=== PATIENT | male | born 1965 | race Caucasian/White ===

== ENCOUNTER 2017-11-05 18:27 | Emergency (ER) | payer BC ==
[2017-11-05] MEDS ORDERED: methylPREDNISolone SOD SUCC 125 MG/2 ML VIAL IVP ONE (18:49)
--- NOTE | 2017-11-05 19:01 | ED Physician Documentation ---
General Adult - HPI Stated Complaint: bee sting Chief Complaint: Allergic Reaction Additional Information: Patient is a housekeeper/custodian/laundry worker. When he started to developed his hives he purposely had himself sung 4 times to try to build up immuntiy. Las week he got stund and developed some itching, blood shot eyes and some reddnes around the sting site. Tonight he was going to see how his hives were doing aand got stung again. Patient states that within minutes he started to have some generalized itching, hives, blood shot eyes, and red skin everywhere. Patient denies that he has had no shortness of breath, no swelling to his tongue or mouth noted. 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 denies: fever, chills - PAST HX Past History: none Other History: none Surgeries/Procedures: none Immunizations: referred to PCP - SOCIAL HX Smoking History: non-smoker Alcohol Use: none Drug Use: none - FAMILY HX Family History: No - VITAL SIGNS Vital Signs: Vital Signs Temp Pulse Resp BP Pulse Ox 97.8 F 75 16 94/53 96 11/05/17 18:33 11/05/17 18:33 11/05/17 18:33 11/05/17 18:33 11/05/17 18:33 - REVIEWED ASSESSMENTS Nursing Assessment Reviewed: Yes Vitals Reviewed: Yes <Robbie Haider - Last Filed: 11/05/17 18:55> - VITAL SIGNS Vital Signs: Vital Signs Temp Pulse Resp BP Pulse Ox 97.8 F 75 16 94/53 96 11/05/17 18:33 11/05/17 18:33 11/05/17 18:33 11/05/17 18:33 11/05/17 18:33 <Montserrat Beauchamp - Last Filed: 11/06/17 00:26> - PAST HX Allergies/Adverse Reactions: Allergies Allergy/AdvReac Type Severity Reaction Status Date / Time No Known Allergies Allergy Unverified 11/05/17 18:40 Home Medications: Ambulatory Orders Medication Instructions Recorded NK [NK] 11/05/17 Progress - Progress Progress: 1900: increasing shaking. He feels he has more redness. No shortness of air. DG 1929: feels he is not getting better - continues to deny any shortness of breath or mouth swelling DG 1999: He states he is feeling better. No shaking. Redness is improving DG 2029: Discussed waiting one full hour for any change. He is feeling "good" DG 2114: Discussed if symptoms return to come back to ER. He has zantac at home will take 150 mg BID X 5 days. Has benadryl at home - will take as directed x 2 days. Will start Medrol Dose pack tomorrow. Call Relocation Coordinator for EPi Pen . DG <Montserrat Beauchamp - Last Filed: 11/06/17 00:26> ED Results Lab/Radiology - Orders Orders: ED Orders Category Date Time Status Place IV Lock 1T Care 11/05/17 18:48 Active methylPREDNISolone SOD SUCC [Solu-MEDROL] Med 11/05/17 18:49 Discontinued 125 mg IVP NOW ONE <Robbie Haider - Last Filed: 11/05/17 18:55> - Lab Results Lab Results: Lab Results 11/05/17 11/05/17 19:15 19:15 WBC 7.20 K/ul K/ul (4.00-12.00) RBC 5.82 M/ul H M/ul (3.90-5.20) Hgb 17.8 g/dL g/dL (12.0-18.0) Hct 51.9 % % (37.0-53.0) MCV 89.1 fl fl (80.0-100.0) MCH 30.5 pg pg (28.0-34.0) MCHC 34.2 g/dL g/dL (30.0-36.0) RDW 13.7 % % (11.3-14.3) Plt Count 222 K/mm3 K/mm3 (130-400) Neut % (Auto) 47.5 % % (39.0-79.0) Lymph % (Auto) 42.4 % % (16.0-50.0) [place] % (Auto) 5.4 % % (0.0-11.0) Eos % (Auto) 1.1 % % (0.0-6.8) Baso % (Auto) 0.3 (0.0-1.5) Neut # (Auto) 3.4 # k/uL # k/uL (1.4-7.7) Lymph # (Auto) 3.1 # k/uL # k/uL (0.6-4.0) [place] # (Auto) 0.4 # k/uL # k/uL (0.0-0.9) Eos # (Auto) 0.1 # k/uL # k/uL (0.0-0.6) Baso # (Auto) 0.0 # k/uL # k/uL (0.0-0.5) Reactive Lymphs % 3.4 % % (0.0-5.0) Reactive Lymphs # 0.2 # k/uL # k/uL (0.0-0.8) Sodium 142 mmol/L mmol/L (136-145) Potassium 3.4 mmol/L L mmol/L (3.5-5.1) Chloride 108 mmol/L H mmol/L (98-107) Carbon Dioxide 21 mmol/L L mmol/L (22-30) BUN 17 mg/dL mg/dL (9-20) Creatinine 1.00 mg/dL mg/dL (0.66-1.25) Estimated Creat Clear 116 Est GFR ( Amer) > 60 (60 - ) Est GFR (Non-Af Amer) > 60 (60 - ) Glucose 144 mg/dL H mg/dL (74-106) Calcium 8.9 mg/dL mg/dL (8.4-10.2) Total Bilirubin 0.3 mg/dL mg/dL (0.2-1.3) AST 22 U/L U/L (15-46) ALT 34 U/L U/L (13-69) Alkaline Phosphatase 77 U/L U/L (38-126) Total Protein 7.6 g/dL g/dL (6.3-8.2) Albumin 4.6 g/dL g/dL (3.5-5.0) - Orders Orders: ED Orders Category Date Time Status Place IV Lock 1T Care 11/05/17 18:48 Active CBC/PLATELET/DIFF Routine Lab 11/05/17 19:15 Completed CMP Routine Lab 11/05/17 19:15 Completed 0.9 % Sodium Chloride [Normal Saline] 1,000 ml Med 11/05/17 19:08 Discontinued IV Q1H 0.9 % Sodium Chloride [Normal Saline] 1,000 ml Med 11/05/17 20:24 Active IV Q1H Famotidine/Pf [Pepcid] Med 11/05/17 19:32 Discontinued 20 mg IVP NOW ONE diphenhydrAMINE HCL [Benadryl] Med 11/05/17 19:17 Discontinued 50 mg IVP NOW ONE methylPREDNISolone SOD SUCC [Solu-MEDROL] Med 11/05/17 18:49 Discontinued 125 mg IVP NOW ONE <Montserrat Beauchamp - Last Filed: 11/06/17 00:26> General Adult Physical Exam - PHYSICAL EXAM GENERAL APPEARANCE: mild distress EENT: ENT inspection normal NECK: normal inspection, thyroid normal, supple. No: lymphadenopathy RESPIRATORY: no resp distress, chest non-tender, breath sounds normal. No: wheezes, rales, rhonchi CVS: reg rate & rhythm, heart sounds normal, equal pulses, no murmur ABDOMEN: soft, no organomegaly, normal bowel sounds, no abdominal bruit BACK: normal inspection SKIN: warm/dry, other (hives red) EXTREMITIES: non-tender NEURO: oriented X3, CN's nml as tested, motor nml, sensation nml, mood/affect nml, cognition normal <Robbie Haider - Last Filed: 11/05/17 18:55> Discharge <Robbie Haider - Last Filed: 11/05/17 18:55> Decision to Admit: NO Date of Decison to Admit: 11/05/17 Decision Time: 21:22 <Montserrat Beauchamp - Last Filed: 11/06/17 00:26> Clincal Impression: Allergic reaction Qualifiers: Encounter type: initial encounter Qualified Code(s): T78.40XA - Allergy, unspecified, initial encounter Referrals: Primary Doctor,No [Primary Care Provider] - 2 Days Additional Instructions: 1. Zantac at home take 150 mg BID X 5 days 2. Medrol Dose pack as directed start in am 3. Clairtin 10 mg daily x 10 days 4. Epi Pen if anaphylaxis (discuss with Cardiology in am) 5. Rest 6. Increase fluids 7. Follow up with PCP in 2 days 8. Return to ER as needed for any concerns or return of symptoms Condition: Stable Disposition: 01 HOME, SELF-CARE
[2017-11-05] MEDS ORDERED: 0.9 % SODIUM CHLORIDE 1,000 ML IV ONE ×2 (19:08→20:24)
[2017-11-05] MEDS ORDERED: diphenhydrAMINE HCL 50 MG/ML VIAL IVP ONE (19:17)
[2017-11-05 19:20] LABS: eGFR (African) > 60; eGFR (Non-African) > 60
[2017-11-05 19:22] LABS: BASOPHILS % 0.3 (0.0-1.5); EOSINOPHILS % 1.1 % (0.0-6.8); MEAN CORPUSCULAR HEMOGLOBIN 30.5 pg (28.0-34.0); MEAN CORPUSCULAR VOLUME 89.1 fl (80.0-100.0); MONOCYTES % 5.4 % (0.0-11.0); NEUTROPHILS # 3.4 # k/uL (1.4-7.7)
[2017-11-05] MEDS ORDERED: FAMOTIDINE/PF 20 MG/2 ML VIAL IVP ONE (19:32)
[2017-11-05 23:53] VITALS: BP 103/68
== END 2017-11-05 21:50 | disposition home or self-care (01) ==
LOC: ED 18:27
DX: T78.40XA Allergy, unspecified, initial encounter (principal)
CPT/HCPCS: 80053; 85025; J1200; J2930; J7030; 96360; 96361; 96374; 96375; S0028; S1016

== ENCOUNTER 2018-01-04 23:45 | Emergency (ER) | payer BC, OTHER ==
[~2018-01-04 23:45] MED LIST: 0.9 % SODIUM CHLORIDE 1,000 ML IV ONE
[2018-01-04] MEDS ORDERED: FAMOTIDINE/PF 20 MG/2 ML VIAL IVP ONE (23:48)
[2018-01-04] MEDS ORDERED: DEXAMETHASONE SOD PHOS 4 MG/ML VIAL IJ ONE (23:48)
[2018-01-04] MEDS ORDERED: methylPREDNISolone SOD SUCC 125 MG/2 ML VIAL IVP ONE (23:49)
[2018-01-04] MEDS ORDERED: diphenhydrAMINE HCL 50 MG/ML VIAL IVP ONE (23:49)
[2018-01-04] MEDS ORDERED: 0.9 % SODIUM CHLORIDE 1,000 ML IV ONE (23:56)
--- NOTE | 2018-01-05 00:03 | ED Physician Documentation ---
Allergy Symptoms - HISTORIAN Historian: patient - HPI Stated Complaint: allergic reaction to bee sting Chief Complaint: Allergic Reaction Onset: minutes (30) Duration: continues in ED Associated Symptoms: skin rash, facial, itching, extremities, diffuse redness Swelling: face. 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 He reports he has some redness and feels flush but came right on over rather thn try any OTC meds. Denies any shortness of air) - ROS EYES/ENT: none CVS/RESP: none GI/: none - PAST HX Prior Allergic Reaction: hives, nausea, rash Medical History: none Immunizations: UTD Allergies/Adverse Reactions: Allergies Allergy/AdvReac Type Severity Reaction Status Date / Time No Known Allergies Allergy Unverified 11/05/17 18:40 Home Medications: Ambulatory Orders Medication Instructions Recorded NK [NK] 11/05/17 - SOCIAL HX Smoking History: non-smoker Alcohol Use: none Drug Use: none - FAMILY HX Family History: No - VITAL SIGNS Vital Signs: Vital Signs Temp Pulse Resp BP Pulse Ox 103/68 11/05/17 21:50 - REVIEWED ASSESSMENTS Nursing Assessment Reviewed: Yes Vitals Reviewed: Yes Progress - Progress Progress: 1230: denies complaints. States he can feel the flush feeling going away. Denies any shortness of air. DG 0115: states he is cold but denies any further rash or reaction symptoms. DG ED Results Lab/Radiology - Orders Orders: ED Orders Category Date Time Status Assess pulse oximetry Q1H Care 01/04/18 23:48 Ordered CBC/PLATELET/DIFF Routine Lab 01/04/18 Ordered CMP Routine Lab 01/04/18 Ordered 0.9 % Sodium Chloride [Normal Saline] 1,000 ml Med 01/04/18 23:56 Discontinued IV .STK-MED Dexamethasone Sod Phosphate [Decadron] Med 01/04/18 23:48 Once 4 mg IJ NOW ONE Famotidine/Pf [Pepcid] Med 01/04/18 23:48 Once 20 mg IVP NOW ONE diphenhydrAMINE HCL [Benadryl] Med 01/04/18 23:49 Once 50 mg IVP NOW ONE methylPREDNISolone SOD SUCC [Solu-MEDROL] Med 01/04/18 23:49 Once 125 mg IVP NOW ONE Allergy Symptons Exam - EXAM General Appearance: no acute distress, alert HEENT: ENT nml inspection, pharynx nml. No: angioedema Skin: erythema, facial (flushed face ) Extremities: non-tender, nml ROM Neck: nml inspection Respiratory: no resp. distress, breath sounds nml CVS: reg rate & rhythm, heart sounds normal, equal pulses, no murmur Abdomen: non-tender, nml bowel sounds Neuro: oriented X3, CN's nml as tested, motor nml, sensation nml, mood/affect nml, cognition normal Discharge Clincal Impression: Allergic reaction Qualifiers: Encounter type: subsequent encounter Qualified Code(s): T78.40XD - Allergy, unspecified, subsequent encounter Referrals: Primary Doctor,No [Primary Care Provider] - 2 Days Comments: 1. Benadryl as directed for continued symptoms 2. Follow up with PCP Saturday for follow up 3. Purchase Epi Pen 4. Return to ER for any change, shortness of air, increased rash or other complaints Condition: Stable Disposition: 01 HOME, SELF-CARE Decision to Admit: NO Date of Decison to Admit: 01/05/18 Decision Time: 01:26
[2018-01-05 00:41] LABS: BASOPHILS % 0.5 (0.0-1.5); EOSINOPHILS % 0.8 % (0.0-6.8); MEAN CORPUSCULAR VOLUME 90.2 fl (80.0-100.0); MONOCYTES % 7.1 % (0.0-11.0); NEUTROPHILS # 4.7 # k/uL (1.4-7.7)
[2018-01-05 00:51] LABS: eGFR (African) > 60; eGFR (Non-African) > 60
[2018-01-05 03:13] VITALS: BP 100/67
== END 2018-01-05 01:40 | disposition home or self-care (01) ==
LOC: ED 23:45
DX: T78.40XA Allergy, unspecified, initial encounter (principal); W57.XXXA Bitten or stung by nonvenomous insect and other nonvenomous arthropods, initial encounter; Y92.9 Unspecified place or not applicable; Y93.9 Activity, unspecified; Y99.9 Unspecified external cause status
CPT/HCPCS: 80053; 85025; J1100; J1200; J2930; J7030; 96365; 96372; 96375; S0028; S1016